=== PATIENT | male | born 1950 | race Caucasian/White ===

== ENCOUNTER → 2024-08-24 | Outpatient (CLI) | payer MEDICARE, OTHER, SELFPAY ==
[2024-08-24 10:06] LABS: International Normalized Ratio 3.6; Prothrombin Time (Protime)PT. 35.8 SECONDS (11.7-14.9)
== END | disposition home or self-care (01) ==
LOC: LAB 09:42
PROVIDERS: PCP Family Medicine; Referring Provider Anesthesiology; Visit Provider Anesthesiology
DX: Z51.81 Encounter for therapeutic drug level monitoring (principal); Z79.01 Long term (current) use of anticoagulants
CPT/HCPCS: 36415; 85610

== ENCOUNTER → 2025-04-10 | Outpatient (CLI) | payer MEDICARE, OTHER, SELFPAY ==
--- NOTE | 2025-04-10 08:23 | RAD_ITS ---
EXAM: XR Right Wrist Complete, 3 or More Views CLINICAL INDICATION: PAIN TECHNIQUE: Frontal, lateral and oblique views of the right wrist. COMPARISON: No relevant prior studies available. 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 Severe degenerative changes of the 1st carpometacarpal joint. Apparent widening of the scapholunate joint space could be secondary to projection or ligamentous injury. Clinical correlation is recommended. No acute fracture. No dislocation. SOFT TISSUES: Unremarkable. No radiopaque foreign body. RAD/Wrist min 3 Views IMPRESSION: 1. Degenerative changes as above. 2. Apparent widening of the scapholunate joint space could be secondary to pro jection or ligamentous injury. Clinical correlation is recommended. Reading Location: [facility]
== END | disposition home or self-care (01) ==
LOC: RAD 08:22
PROVIDERS: PCP Family Medicine; Referring Provider Anesthesiology; Visit Provider Anesthesiology
DX: M25.531 Pain in right wrist (principal)
CPT/HCPCS: 73110